=== PATIENT | male | born 1975 | race Two or more races ===

== ENCOUNTER 2025-02-04 01:57 | Emergency (ER) | payer OTHER ==
[~2025-02-04] VITALS: Ht 175.3 cm; Wt 90.7 kg
[2025-02-04] MEDS ORDERED: PROMETHAZINE HCL 50 MG/ML AMPUL IM STA (02:49)
[2025-02-04] MEDS ORDERED: MORPHINE SULFATE 4 MG/ML VIAL IV STA ×2 (02:49→03:57)
[2025-02-04] MEDS ORDERED: TAMSULOSIN HCL 0.4 MG CAP PO STA (02:49)
[2025-02-04] MEDS ORDERED: PROMETHAZINE HCL 50 MG/ML AMPUL IM ONE (02:51)
[2025-02-04] MEDS ORDERED: 0.9 % SODIUM CHLORIDE 1,000 ML IV ONE (03:00)
[2025-02-04 03:43] LABS: CALCIUM 9.9 mg/dL (8.5-10.1); CREATININE SERUM 1.49 mg/dL (0.70-1.30); GFR 50.13; POTASSIUM 4.56 mEq/L (3.5-5.1)
[2025-02-04 03:45] LABS: HEMATOCRIT 48.2 % (39.0-48.0); HEMOGLOBIN 16.1 g/dL (13-16.00); MEAN CELL VOLUME 91.8 fL (80.0-100.00); MEAN CORPUSCULAR HEMOGLOBIN 30.6 pg (27.00-32.0); MEAN CORPUSCULAR HGB CONC 33.4 g/dl (32.0-36.0); PLATELET COUNT 222 K/uL (150-450); RED BLOOD COUNT 5.25 M/uL (4.00-6.00); RED CELL DISTRIBUTION WIDTH 14.4 % (11.5-14.5)
[2025-02-04] MEDS ORDERED: TAMSULOSIN HCL 0.4 MG CAP PO ONE (06:07)
[2025-02-04 09:26] LABS: PH,URINE 6.5 (5.0-8.0); URINE APPEARANCE Cloudy; URINE BILIRRUBIN Negative (NEGATIVE); URINE BLOOD Large; URINE COLOR Yellow; URINE GLUCOSE Negative (NEGATIVE); URINE KETONE 15 (NEGATIVE); URINE LEUKOCYTE Trace; URINE NITRATE Negative; URINE UROBILINOGEN 0.2 E.U./dl
[2025-02-04 09:28] LABS: URINE BACTERIA 58.7 uL (0.0-1933); URINE RBC 3064.5 uL (0.0-20.8); URINE WBC 44.1 uL (0.0-23.2)
[2025-02-04 09:51] LABS: URINE CAST 0.29 uL (0.0-1.40); URINE PROTEIN 100 (NEGATIVE)
== END 2025-02-04 10:37 | disposition home or self-care (01) ==
LOC: ER 01:58
PROVIDERS: General Practice
DX: N13.39 Other hydronephrosis (principal); K57.30 Diverticulosis of large intestine without perforation or abscess without bleeding